=== PATIENT | male | born 1955 | race Caucasian/White ===

== ENCOUNTER → 2016-06-21 | Outpatient (CLI) | payer BC ==
[2016-06-21 15:04] LABS: BASOPHILS # (AUTO) 0.05 10*3/UL; BASOPHILS % (AUTO) 0.8 % (0-1); EOSINOPHILS % (AUTO) 3.6 % (0-8); HEMATOCRIT 50.3 % (42.0-52.0); HEMOGLOBIN 17.3 g/dL (14.0-18.0); IMM GRAN % (AUTO) 0.5 % (0-5); IMM GRAN# (AUTO) 0.03 10*3/UL; LYMPHOCYTES # (AUTO) 1.43 10*3/uL; LYMPHOCYTES % (AUTO) 23.2 % (10-50); MEAN CORPUSCULAR HEMOGLOBIN 32.8 PG (27-31); MEAN CORPUSCULAR HGB CONC 34.4 g/dL (33-37); MEAN PLATELET VOLUME 11.6 FL (7.4-12.2); MONOCYTES # (AUTO) 0.86 10*3/UL (0.3-0.8); MONOCYTES % (AUTO) 13.9 % (5-15); NEUTROPHILS # (AUTO) 3.58 10*3/UL; RDW COEFFICIENT OF VARIATION 12.7 % (11.5-14.5); RED BLOOD COUNT 5.27 10^6/uL (4.70-6.10); WHITE BLOOD COUNT 6.17 10^3/uL (4.8-10.8)
[2016-06-21 15:08] LABS: PLATELET MORPHOLOGY COMMENT NORMAL MORPHOLOGY (NORM)
[2016-06-21 15:19] LABS: ASPARTATE AMINO TRANSFERASE 54 IU/L (21-57); BILIRUBIN,TOTAL 0.8 mg/dL (0.3-1.2); BLOOD UREA NITROGEN 26 mg/dL (7-22); BUN/CREATININE RATIO 23.63 (6-20); CALCIUM 9.5 mg/dL (8.7-10.7); CHLORIDE 102 meq/L (98-112); CREATININE 1.1 mg/dL (0.70-1.50); EST GLOMERULAR FILTRATION > 60 (>60 ml/min/1.73m(2)); GLUCOSE 99 mg/dL (78-110); POTASSIUM 4.1 meq/L (3.8-5.2); SODIUM 140 meq/L (135-145); TOTAL PROTEIN 7.4 g/dL (6.1-8.0)
--- NOTE | 2016-06-21 15:23 | EKG ---
[address] [address] Measurements Intervals [place] Rate: 76 P: 39 NV: 156 QRS: 63 QRSD: 86 T: 33 QT: 374 QTc: 404 Interpretive Statements SINUS RHYTHM No previous ECG available for comparison Electronically Signed On 06-22-16 12:25:29 MST by Carlos Enrique Gloria [email or web address]
== END ==
LOC: LAB 14:42
PROVIDERS: ATTEND Orthopaedic Surgery
DX: Z01.812 Encounter for preprocedural laboratory examination (principal); Z01.810 Encounter for preprocedural cardiovascular examination; M25.512 Pain in left shoulder
CPT/HCPCS: 36415; 80053; 85025; 93005; 93010

== ENCOUNTER 2017-01-07 11:19 | Emergency (ER) | payer BC ==
[2017-01-07 11:50] VITALS: RESP 16; TEMP 98.3
[2017-01-07] MEDS ORDERED: KETOROLAC 30 MG/1 ML VIAL ONE (12:01)
[2017-01-07] MEDS ORDERED: KETOROLAC 30 MG/1 ML VIAL IM ONE ×2 (12:07→12:08)
--- NOTE | 2017-01-07 12:07 | PDOC ---
Lower Extremity Injury HPI - General Chief Complaint: Lower Extremity Problem/Injury Stated Complaint: RIGHT FOOT PAIN Date Seen by Provider: 01/07/17 Time Seen by Provider: 12:02 Source: POSITIVE: Patient Exam Limitations: POSITIVE: No limitations Nurse's Notes Reviewed & Considered: Yes - History of Present Illness Initial Comments: This is a 61-year-old male who presents to the emergency department with a history of increasing pain in his right ankle for the past for 5 days prior to arrival. He states that it's a gout flareup. He has had numerous episodes of pain in his right ankle over the years and this is very similar to his previous gout flares. Patient does state that he has never had any blood workup or joint aspiration to confirm the diagnosis. He also states that his last flareup was only 3 weeks ago. He normally gets a Medrol Dosepak and then improves things within 24 hours or so. He has no fevers or chills, the pain is only limited to his right ankle. He does have some associated swelling. He has never been on anything like allopurinol to prevent flareups. Have you received a tetanus shot in the past 10 years?: Yes - Patient Home Medications Home Medications: Home Medications Ascorbic Acid [Vitamin C] 1,400 mg PO DAILY 12/05/11 Mometasone/Formoterol [Dulera 200 Mcg/5 Mcg Inhaler] 2 puff INH BID #3 inhaler 12/10/15 Olopatadine HCl [Pataday] 1 drop OP DAILY #1 bottle 07/27/16 Mirtazapine [Remeron] 15 mg PO DAILY #30 tab 10/25/16 Ranitidine HCl [Zantac 75] 150 mg PO QD tab 10/25/16 Zolpidem Tartrate 1 tab PO DAILY #30 tab 10/25/16 Montelukast Sodium 10 mg PO DAILY #90 tab 12/15/16 Fluticasone Propionate [Flonase Allergy Relief] 2 spr LONA DAILY spr 12/18/16 - Patient Allergies Allergies/Adverse Reactions: Allergies Allergy/AdvReac Type Severity Reaction Status Date / Time albuterol Allergy Severe constricts Verified 01/07/17 12:06 airways omeprazole Allergy Intermediate ITCHING/HIV Verified 01/07/17 12:06 ES tetracycline Allergy Intermediate HIVES Verified 01/07/17 12:06 Sulfa (Sulfonamide Allergy Mild Rash Verified 01/07/17 12:06 Antibiotics) erythromycin base AdvReac Intermediate vomiting Verified 01/07/17 12:06 NSAIDS (Non-Steroidal AdvReac Intermediate NAUSEA Verified 01/07/17 12:06 Anti-Inflamma Iodinated Contrast- Oral and AdvReac NOT Verified 01/07/17 12:06 IV Dye APPLICABLE [Iodinated Contrast Media - Oral and] Past Medical History - heen HEENT History: Denies History Additional HEENT History: RECURRENT CHALAZIONS Cardiovascular History: Denies History Respiratory History: Asthma Gastrointestinal History: GERD, Pancreatitis, Colitis Additional Gastrointestinal History: INTERNAL HEMORRHOIDS Genitourinary History: Denies History Endocrine History: Denies History Musculoskeletal History: Arthritis, Gout Prosthesis or Implant: No Neurological History: Denies History Blood Disorders: Denies History Psychiatric History: Denies History History of Sexually Transmitted Diseases: No Male Reproductive History: Denies History Cancer History: Other (please comment) Cancer Treatment / Date(s) of Treatment: REMOVAL In Past Year Been Physically Harmed or Verbally Threatened: No History of MDRO: No History of Other Communicable Diseases: No Tobacco Use: Never Smoker Alcohol Use: None Substance Use Type: None Previous Surgical History: Yes Type / Date of Surgery: BUDDY/ I&D CYST ON FACE/ RIGHT KNEE SCOPE Anesthesia Reactions: No Malignant Hyperthermia: No Family History of Malignant Hyperthermia: No Significant Family History: No pertinent family hx Past Medical History Reviewed: Reviewed - No Changes ROS Constitution: DENIES: Chills, Fever Musculoskeletal: DENIES: Muscle Aches Skin: REPORTS: Denies Skin Symptoms Lower Ext Complaint Exam - General Appearance General Appearance: POSITIVE: Alert, Cooperative, Mild Distress - Extremities Lower Extremity: POSITIVE: Skin Intact, Soft Tissue Tenderness (Right lateral ankle), Swelling (Right ankle.), Erythema (Dorsal lateral aspect of the foot, but is not tender or warm to the touch.) Gait: POSITIVE: Limited by Pain Neurovascular/Tendon: POSITIVE: No Vascular Compromise. NEGATIVE: Cool Skin Skin: POSITIVE: Warm, Dry. NEGATIVE: Ecchymosis - Respiratory / CVS Respiratory / CVS: POSITIVE: Breath Sounds Normal, No Respiratory Distress, Heart Sounds Normal, Regular Rate/Rhythm Lower Ext Complaint Progress - Patient's Progress Pain Medication Addressed: POSITIVE: Yes Status: POSITIVE: Improved MDM / ED Course: Emergency room course: After initial evaluation, the patient was given an injection of Toradol 30 mg IM. Since his pain was minimal except for when he bears weight, the patient was discharged after the injection. A prescription for Medrol Dosepak was called in, per his request. I did tell the patient to follow up with Dr. Chaney, his primary physician, to discuss allopurinol for prevention of these flares in the future. I'm somewhat concerned that he has been on 5 Medrol Dosepak since beginning of the year. - Consult Counseled: POSITIVE: Patient, Family, RE: DX, RE: Need for F/U Patient Care Time - Estimated PCT Patient Care Time (In Minutes): 10 Vital Signs - Recent Vital Signs Vital Signs: Vital Signs (Last 8 hours) Temp Pulse Resp BP Pulse Ox 01/07/17 11:20 98.3 F 78 16 137/87 95 Discharge Clinical Impression: Gout attack Discharge Disposition: Discharged to Home Condition: Good Patient Instructions Given at Discharge: Gout (ED) Follow Up With: NONE,NONE [Primary Care Provider] -
== END 2017-01-07 12:40 | disposition home or self-care (01) ==
LOC: ER 11:19
DX: M10.9 Gout, unspecified (principal); R22.41 Localized swelling, mass and lump, right lower limb
CPT/HCPCS: 96372; 99282 ×2; J1885

== ENCOUNTER 2017-01-26 10:20 | Emergency (ER) | payer BC ==
[2017-01-26 10:45] VITALS: RESP 18; TEMP 97.5
[2017-01-26] MEDS ORDERED: Sodium Chloride 0.9% 100 ML PRIMARY IV ONE (10:45)
[2017-01-26] MEDS: NORMAL SALINE 10 ML SYRINGE FLUSH IVP PRN ×2 (10:50→11:11)
[2017-01-26 10:59] LABS: HEMATOCRIT 46.6 % (42.0-52.0); HEMOGLOBIN 16.6 g/dL (14.0-18.0); MEAN CORPUSCULAR HEMOGLOBIN 33.6 PG (27-31); MEAN CORPUSCULAR HGB CONC 35.6 g/dL (33-37); MEAN CORPUSCULAR VOLUME 94.3 FL (80-90); MEAN PLATELET VOLUME 11.4 FL (7.4-12.2); RED BLOOD COUNT 4.94 10^6/uL (4.70-6.10)
[2017-01-26] MEDS ORDERED: methylPREDNISolone 125 MG/2 ML VIAL IVP ONE (11:07)
[2017-01-26] MEDS ORDERED: methylPREDNISolone 125 MG/2 ML VIAL ONE (11:09)
--- NOTE | 2017-01-26 12:26 | DI ---
History: Swelling around right eye Comparison: None Findings: There is pre-septal, soft tissue swelling over the right eye, predominantly over the medial aspect of the right eye. Within the medial soft tissue swelling, there is a roughly 0.8 x 0.8 cm area of hypod ensity suspicious for a sequestered fluid collection/abscess. This may be within the lacrimal duct, b ut there also appears to be a small defect in the medial orbital wall (lacrimal bone), and although t his would be an unusual location, this could represent a subperiosteal abscess. Series 6, image 27. N ote is made that there is a small amount of soft tissue density within the anterior ethmoid air cells at this site. There is also a small amount of soft tissue density within the anterior ethmoid air ce lls at this site. The globe is intact. The intraconal fat is normal in density Extraocular musculature is normal in course and caliber and demonstrates no abnormal density. Optic nerve is normal in course and caliber and demonstrates no abnormal density. Postcontrast images demonstrate no ocular or intraconal lesions. The left globe and left orbit are unremarkable in appearance. Other than this small amount of soft tissue density in the anterior right ethmoid air cells, the para nasal sinuses are clear. Mastoid cells are well aerated. Impression: Findings suspicious for a preseptal subperiosteal abscess, versus lachrymal duct abscess
--- NOTE | 2017-01-26 13:45 | PDOC ---
Eye Complaint HPI - General Chief Complaint: Eye Problem / Injury Stated Complaint: eye infection Date Seen by Provider: 01/26/17 Time Seen by Provider: 10:29 Source: POSITIVE: Patient, RN/MD, Old records Exam Limitations: POSITIVE: No limitations Nurse's Notes Reviewed & Considered: Yes - History of Present Illness Initial Comments: The patient is a 61-year-old male. He states that for the past 10 days, approximately, he has noticed "a lump" in the area of the medial canthus of his right eye. He states he saw his primary care provider for this problem, Dr. Chaney, and the patient reports that he was advised that he probably had "an infected tear duct". He was placed on an antibiotic, cefuroxime and an antibiotic eyedrop. The patient reports that his primary care doctor has been attempting to secure an ophthalmology consultation for the patient, but so far has not been able to do so. Patient states that he continues to have discomfort over the right medial canthus and along the right side of the nose adjacent. He's also had some swelling below the right eye. He does not report any pain to the eye when he moves his eyeball. No fevers. No nasal discharge. No neck pain. Patient does not wear contact lenses, but he does wear glasses. Patient describes some purulent discharge noted, medial canthus area. No described visual acuity changes. Have you received a tetanus shot in the past 10 years?: Unknown Location: Right Eye Timing: REPORTS: Gradual, Getting Worse Duration: >1 week (Approximately 10 days) Severity: Moderate Quality: REPORTS: "Pain" Recent Injury: REPORTS: No Associated Symptoms: REPORTS: Pain. DENIES: Burning, Itching, Sensitivity to Light, Redness, Matting, Eyelid Swelling, Foreign Body Sensation, Decreased Vision, Blurred Vision, Double Vision, Other Context: DENIES: Foreign Body, Direct Trauma, Projectile Injury, Penetration Injury, Chemical Exposure, Eyes Washed at Scene, Welding Arc Exposure, Tanning Birch Exposure, Wearing Reading Glasses, Wearing Protect. Glasses, Soft Contact Lenses, Hard Contact Lenses, Recent Contact w/ Illness, [place] [facility], Other Location at Time of Onset: REPORTS: Home Concurrent Injuries: DENIES: Neck, Head, Back, Chest, Abdomen, Extremities, Face , Other Modifying Factors: DENIES: Nothing Exacerbates, Exertion, Movement, Rest, Ice, Positioning, Nothing Relieves, Other Similar Symptoms Previously: No Recent Care Received: REPORTS: Recently Seen, Treated by MD (As above) Any Prior Injuries Related to Current Complaint?: No - Patient Home Medications Home Medications: Home Medications Ascorbic Acid [Vitamin C] 1,400 mg PO DAILY 12/05/11 Mometasone/Formoterol [Dulera 200 Mcg/5 Mcg Inhaler] 2 puff INH BID #3 inhaler 12/10/15 Olopatadine HCl [Pataday] 1 drop OP DAILY #1 bottle 07/27/16 Ranitidine HCl [Zantac 75] 150 mg PO QD tab 10/25/16 Zolpidem Tartrate 1 tab PO DAILY #30 tab 10/25/16 Montelukast Sodium 10 mg PO DAILY #90 tab 12/15/16 Fluticasone Propionate [Flonase Allergy Relief] 2 spr LONA DAILY spr 12/18/16 Allopurinol 1 tab PO QD #30 tab 01/10/17 Howard/Polymyx B Sulf/Dexameth [Maxitrol Eye Drops] 1 drop OP TID #1 bottle Cefuroxime Axetil [Cefuroxime] 500 mg PO BID #20 tab 01/19/17 Clindamycin HCl [Cleocin HCl] 300 mg PO Q8H #30 capsule 01/26/17 - Patient Allergies Allergies/Adverse Reactions: Allergies Allergy/AdvReac Type Severity Reaction Status Date / Time albuterol Allergy Severe constricts Verified 01/26/17 10:27 airways omeprazole Allergy Intermediate ITCHING/HIV Verified 01/26/17 10:27 ES tetracycline Allergy Intermediate HIVES Verified 01/26/17 10:27 Sulfa (Sulfonamide Allergy Mild Rash Verified 01/26/17 10:27 Antibiotics) erythromycin base AdvReac Intermediate vomiting Verified 01/26/17 10:27 NSAIDS (Non-Steroidal AdvReac Intermediate NAUSEA Verified 01/26/17 10:27 Anti-Inflamma Iodinated Contrast- Oral and AdvReac NOT Verified 01/26/17 10:27 IV Dye APPLICABLE [Iodinated Contrast Media - Oral and] Past Medical History - heen HEENT History: Denies History Additional HEENT History: RECURRENT CHALAZIONS Cardiovascular History: Denies History Respiratory History: Asthma Gastrointestinal History: Pancreatitis, Colitis Additional Gastrointestinal History: INTERNAL HEMORRHOIDS Genitourinary History: Denies History Endocrine History: Denies History Musculoskeletal History: Denies History Prosthesis or Implant: No Neurological History: Denies History Blood Disorders: Denies History Psychiatric History: Denies History History of Sexually Transmitted Diseases: No Cancer History: Denies History Cancer Treatment / Date(s) of Treatment: REMOVAL In Past Year Been Physically Harmed or Verbally Threatened: No History of MDRO: No History of Other Communicable Diseases: No Tobacco Use: Former Smoker Alcohol Use: None Substance Use Type: None Previous Surgical History: Yes Type / Date of Surgery: BUDDY/ I&D CYST ON FACE/ RIGHT KNEE SCOPE Anesthesia Reactions: No Malignant Hyperthermia: No Significant Family History: No pertinent family hx Past Medical History Reviewed: Reviewed - No Changes ROS - Limitations ROS Limitations: No Limitations Constitution: REPORTS: Denies Symptoms Cardiovascular: REPORTS: Denies Cardiac Symptoms Respiratory: REPORTS: Denies Resp Symptoms Neurological: REPORTS: Denies Neuro Symptoms Gastrointestinal: REPORTS: Denies GI Symptoms Endocrine: REPORTS: Denies Symptoms Musculoskeletal: REPORTS: Denies MS Symptoms Genitourinary: REPORTS: Denies Symptoms Eyes: REPORTS: Other (Swelling and a "lump" area of medial canthus with some swelling medial to the eye and inferior to the eye, right) ENT: REPORTS: Denies Symptoms Skin: REPORTS: Denies Skin Symptoms Lympathic: REPORTS: Denies Lympathic Symptoms Immunologic: POSITIVE: Denies Symptoms Psychiatric: POSITIVE: Denies Psych Symptoms Eye Complaint Physical Exam - General Appearance General Appearance: POSITIVE: Alert, Cooperative, No Acute Distress, No Evidence of Trauma - Visual Acuity / Pupil Size Visual Acuity: 20/20: Left, 20/15: Right Pupil Size: 3 mm: Bilateral (PERRLA) - HEENT Head / Face: POSITIVE: Atraumatic, Normal Inspection, No Facial Swelling Eyes: POSITIVE: PERRL, EOM's Intact, Eyelids Uninjured, Conjunctivae Uninjured, Fluorescein Exam Normal, No Nystagmus, No Globe Trauma, Sclera Normal, Normal Corneal Inspection, Normal Fundoscopic Exam, Ant. Chamber Nml Inspect., Posterior Segments Normal, Other (Some swelling and a small "lump" near medial canthus with some swelling and mild erythema medial to the right eye and inferior to the right eye.) Ears: POSITIVE: Ears Normal Inspection, TM Normal Inspection, Auricle Normal, External Canal Normal Nose: POSITIVE: Inspection Normal, No Apparent Trauma, Nares Normal, No CSF Leak Oropharynx: POSITIVE: External Inspection Nml, Pharynx Inspect. Nml, Airway Intact, Voice Normal, Moist Mucous Membranes, No Oral Injury, Lips Normal, Gums Normal, No Drooling, No Thrush, Normal Gag Reflex Dental: POSITIVE: No Dental Injury - Skin Skin: POSITIVE: Other (Some swelling and erythema medial and inferior to right eye) - Neck / Back Neck/Back: POSITIVE: Normal Inspection, Non-Tender, Painless ROM - Respiratory / Cardiovascular Respiratory / CVS: POSITIVE: No Respiratory Distress, Breath Sounds Normal, Regular Rate/Rhythm, Heart Sounds Normal Peripheral Pulses: Radial (R): 2+, Radial (L): 2+ - Abdomen Abdomen: Soft: (All Quadrants), Normal Bowel Sounds: (All Quadrants), Denies Tenderness: (All Quadrants), No Splenomegaly: (All Quadrants), No Hepatomegaly: (All Quadrants), No Guarding: (All Quadrants), No Rebound: (All Quadrants), No Palpable Pulse: (All Quadrants), No Palpabale Mass: (All Quadrants), No Distention: (All Quadrants), No Rigidity: (All Quadrants) - Neurological / Psychological Neuro / Psych: POSITIVE: Oriented to Person, Oriented to Place, Oriented to Time , CN's Normal as Tested, Normal Speech, Normal Cognition, Appropriate Mood, Appropriate Affect Images - Head Head: 1 - Some swelling and erythema 2 - Some swelling and erythema - Eyes Eye: 1 - Some swelling and a "lump" Eye Complaint Progress - Results Reviewed by me Xrays/CTs/US Reviewed by me: Yes Discussed with Radiologist: Yes Radiology Findings: CT scan of orbits with and without contrast is interpreted by radiologist as showing preseptal swelling medial to the right eye with a possible subperiosteal abscess of the lacrimal bone. All findings or preseptal. No orbital abscess or abnormalities. Lab Results Reviewed: Yes (CBC normal) Lab Results:: Laboratory Results 01/26/17 Range/Units 10:56 WBC 5.54 (4.8-10.8) 10^3/uL RBC 4.94 (4.70-6.10) 10^6/uL Hgb 16.6 (14.0-18.0) g/dL Hct 46.6 (42.0-52.0) % MCV 94.3 H (80-90) FL MCH 33.6 H (27-31) PG MCHC 35.6 (33-37) g/dL RDW Std Deviation 46.4 (39-50) fL RDW Coeff of Thelma 13.8 (11.5-14.5) % Plt Count 155 (140-350) 10*3/uL MPV 11.4 (7.4-12.2) FL NT-Pro-B Natriuret Pep 36.6 (0-125) PG/ML - Patient's Progress Pain Medication Addressed: POSITIVE: Yes (Recommended Advil or Tylenol) School/Work Release Addressed: POSITIVE: Yes (Avoid wind Sundin dust) Re-Examine Time:: 12:50 Status: POSITIVE: Unchanged, Re-Examined - Consult Consult (If Yes, Name of Consulting MD & Time Called): Yes (Dr. Chaney, patient's primary care provider, [id number]) Consulting MD will see pt:: POSITIVE: In Office (Dr. Chaney advises that he is in the process of securing a ophthalmology consultation for the patient and that he will be calling the patient within the next day or so with an appointment. I advised the patient to contact Dr. Chaney's office if he is not heard from Dr. Chaney within 48 hours.) Counseled: POSITIVE: Patient, RE: Lab Results, RE: Radiology Results, RE: DX, RE : Need for F/U Patient Care Time - Estimated PCT Patient Care Time (In Minutes): 60 Vital Signs - Recent Vital Signs Vital Signs: Vital Signs (Last 8 hours) Temp Pulse Resp BP Pulse Ox 01/26/17 10:29 97.5 F 78 18 144/93 90 - VS Reviewed Vital Signs Reviewed: Yes Discharge Clinical Impression: Dacrocystitis, Preseptal cellulitis of right eye Discharge Disposition: Discharged to Home Condition: Fair Prescriptions / Orders: Clindamycin HCl [Cleocin HCl] 300 mg PO Q8H #30 capsule Patient Instructions Given at Discharge: Periorbital Cellulitis in Adults (ED) Additional Instructions: I believe you have an infected tear duct to your right eye, a condition called dacyrocystitis which has spread around the orbit, a condition called preseptal cellulitis. CT scanning of your right orbit shows no extension of the infection around the eyeball itself, a more serious condition called orbital cellulitis. I discussed the CT scan findings with your physician, Dr. Chaney. We agreed to switch her antibiotic to clindamycin, 300 mg every [address] scan also suggested that there might be a small abscess on one of the bones of the orbit, which may be one reason why you're not responding well to antibiotics. Your blood tests are normal. Dr. Chaney is in the process of arranging an ophthalmological evaluation, and you should be hearing from him in the next 1-2 days. If you have not heard from Dr. Chaney within 48 hours, please contact him. Return here anytime if your condition worsens in any way whatsoever. Please apply warm moist compresses to your eye 3 or 4 times a day, which may help your lacrimal gland to drain. Follow Up With: JULITO CHANEY [Primary Care Provider] - (Instructions as above. Follow-up with your primary care provider and the ophthalmologic specialist it web development consultant, which Dr. Chaney is arranging.)
== END 2017-01-26 12:50 | disposition home or self-care (01) ==
LOC: ER 10:20
DX: L03.213 Periorbital cellulitis (principal); H57.11 Ocular pain, right eye
CPT/HCPCS: 83880; 85027; 96374; 99283 ×2; J2930